=== PATIENT | male | born 1950 | race Hispanic/Latino ===

== ENCOUNTER 2020-08-15 06:33 | Inpatient (IN) | payer MEDICARE, OTHER ==
[~2020-08-15] VITALS: Ht 177.8 cm; Wt 88.5 kg
[~2020-08-15 06:33] MED LIST: FOLIC ACID PO; LISINOPRIL10 MG PO; METFORMIN HCL500 M2 PO; METOPROLOL SUCC25 MG PO; NITROGLYCERIN0.4 MG SL; PLAVIX75 MG PO; SIMVASTATIN40 MG PO; SYNTHROID100 MCG PO
[2020-08-15] MEDS ORDERED: MORPHINE SULFATE 2 MG/ML SYR 1ML IV STA (06:36)
[2020-08-15] MEDS ORDERED: ONDANSETRON HCL INJ 2MG/ML 2ML 2 MG/ML VIAL IV STA (06:36)
[2020-08-15] MEDS ORDERED: ASPIRIN 81 MG CHEW TAB PO ONE (06:45)
[2020-08-15] MEDS ORDERED: NITROGLYCERIN 2% OINT 1 GM PKT TOP ONE (06:45)
[2020-08-15 06:56] LABS: BASOPHILS % 0.1 % (0.0-1.0); EOSINOPHILS # (AUTO) 0.1 (0.0-0.4); EOSINOPHILS % 1.5 % (0.0-6.0); HEMATOCRIT 36.3 % (38.2-49.6); HEMOGLOBIN 12.6 g/dL (14.0-18.0); LYMPHOCYTES # (AUTO) 1.9 (1.0-3.2); LYMPHOCYTES % 25.3 % (18.0-39.1); MEAN CORPUSCULAR HEMOGLOBIN 28.3 pg (28-32); MEAN CORPUSCULAR HGB CONC 34.7 g/dL (31-35); MEAN CORPUSCULAR VOLUME 81.4 fL (81-99); MONOCYTES # (AUTO) 0.6 (0.2-0.8); MONOCYTES % 7.8 % (4.4-11.3); NEUTROPHILS # (AUTO) 4.9 (2.1-6.9); PLATELET COUNT 180 x10e3/uL (140-360); RED BLOOD COUNT 4.46 x10e6/uL (4.3-5.7); RED CELL DISTRIBUTION WIDTH 12.1 % (11.7-14.4)
[2020-08-15] MEDS ORDERED: SODIUM CHLORIDE 0.9% 500ML 500 ML IV ONE (07:00)
[2020-08-15 07:06] LABS: INR 0.87; PROTHROMBIN TIME 12.3 seconds (11.9-14.5)
[2020-08-15 07:14] LABS: ALBUMIN 3.7 g/dL (3.5-5.0); ALBUMIN/GLOBULIN RATIO 1.1 (0.8-2.0); ANION GAP 14.9 mmol/L (8-16); CALCIUM 10.3 mg/dL (8.4-10.2); CREATININE, SERUM 1.73 mg/dL (0.72-1.25); POTASSIUM 3.9 mmol/L (3.5-5.1)
[2020-08-15] MEDS ORDERED: SODIUM CHLORIDE 0.9% 1000ML 1,000 ML IV STA (07:17)
[2020-08-15 07:20] LABS: CREATINE KINASE MB 1.5 ng/mL (0-5.0)
[2020-08-15] MEDS ORDERED: INSULIN REGULAR, HUMAN 100 UNIT/1 ML 3ML VIAL ONE (07:28)
[2020-08-15] MEDS ORDERED: SODIUM CHLORIDE 0.9% 1000ML 1,000 ML ONE (07:28)
[2020-08-15] MEDS ORDERED: INSULIN REGULAR, HUMAN 100 UNIT/1 ML 3ML VIAL IV ONE (07:30)
[2020-08-15] MEDS ORDERED: NITROGLYCERIN 0.4 MG SUBL SL PRN (07:30)
[2020-08-15] MEDS: ASPIRIN 81 MG ENTERIC COATED PO SCH (07:38)
[2020-08-15] MEDS ORDERED: DEXTROSE 50% SYRINGE 50 ML IV PRN (07:45)
[2020-08-15] MEDS: FAMOTIDINE 20 MG/2 ML VIAL IV SCH ×2 (08:08→20:20)
[2020-08-15] MEDS: CLOPIDOGREL BISULFATE 75 MG TAB PO SCH (08:09)
[2020-08-15 08:55] VITALS: BP 131/80
[2020-08-15 09:35] VITALS: BP 140/81
[2020-08-15] MEDS ORDERED: ATORVASTATIN CA40 MG PO (09:51)
[2020-08-15 12:11] VITALS: BP 123/73
[2020-08-15] MEDS: INSULIN LISPRO 100 UNIT/1 ML 3ML VIAL SQ SCH ×3 (12:40→21:10)
[2020-08-15] MEDS: ENOXAPARIN SOD INJ 60 MG/0.6 ML SYR SC SCH ×2 (12:40→22:44)
[2020-08-15] MEDS: ONDANSETRON HCL INJ 2MG/ML 2ML 2 MG/ML VIAL IV PRN ×2 (14:06→23:22)
[2020-08-15] MEDS: MORPHINE SULFATE 2 MG/ML SYR 1ML IV PRN ×2 (14:06→23:22)
[2020-08-15 15:11] LABS: CREATINE KINASE MB 1.4 ng/mL (0-5.0)
[2020-08-15 16:28] VITALS: BP 121/80
[2020-08-15] MEDS ORDERED: ASPIRIN CHEW81 MG PO (18:22)
[2020-08-15] MEDS ORDERED: SIMVASTATIN40 MG PO (18:22)
[2020-08-15 20:00] VITALS: BP 127/83
[2020-08-15 20:28] LABS: CREATININE,URINE RANDOM 79.35 mg/dL (63-166); TOTAL PROTEIN, URINE 7.7 mg/dL (1-14)
[2020-08-15 21:00] VITALS: BP 127/83
[2020-08-15] MEDS: ATORVASTATIN 40 MG TAB PO SCH (21:48)
[2020-08-16] VITALS (8 sets, daily range): BP systolic 115–145; BP diastolic 67–88
[2020-08-16 04:07] LABS: CREATINE KINASE 39 IU/L (30-200)
[2020-08-16] MEDS: LEVOTHYROXINE SODIUM 100 MCG TAB PO SCH (06:07)
[2020-08-16 06:11] LABS: BASOPHILS % 0.3 % (0.0-1.0); EOSINOPHILS % 0.5 % (0.0-6.0); HEMATOCRIT 31.7 % (38.2-49.6); LYMPHOCYTES # (AUTO) 1.5 (1.0-3.2); LYMPHOCYTES % 19.6 % (18.0-39.1); MEAN CORPUSCULAR HEMOGLOBIN 29.2 pg (28-32); MEAN CORPUSCULAR HGB CONC 34.7 g/dL (31-35); MEAN CORPUSCULAR VOLUME 84.1 fL (81-99); MONOCYTES # (AUTO) 0.6 (0.2-0.8); MONOCYTES % 7.9 % (4.4-11.3); NEUTROPHILS # (AUTO) 5.4 (2.1-6.9); NEUTROPHILS % 71.2 % (38.7-80.0); PLATELET COUNT 162 x10e3/uL (140-360); RED BLOOD COUNT 3.77 x10e6/uL (4.3-5.7); RED CELL DISTRIBUTION WIDTH 12.3 % (11.7-14.4)
[2020-08-16 07:08] LABS: ANION GAP 13.2 mmol/L (8-16); CALCIUM 9.9 mg/dL (8.4-10.2); CHOL/HDL RATIO 3.8 (3.9-4.7); CREATININE, SERUM 1.44 mg/dL (0.72-1.25); POTASSIUM 4.2 mmol/L (3.5-5.1)
[2020-08-16] MEDS: INSULIN LISPRO 100 UNIT/1 ML 3ML VIAL SQ SCH ×5 (08:01→20:38)
[2020-08-16 08:44] LABS: CREATINE KINASE MB < 1.00 ng/mL (0-4.3)
[2020-08-16 08:57] LABS: CREATINE KINASE 28 IU/L (30-200)
[2020-08-16] MEDS: ASPIRIN 81 MG ENTERIC COATED PO SCH (09:34)
[2020-08-16] MEDS: CLOPIDOGREL BISULFATE 75 MG TAB PO SCH (09:34)
[2020-08-16] MEDS: METOPROLOL SUCCINATE 25 MG TAB XL PO SCH (09:34)
[2020-08-16] MEDS: ENOXAPARIN SOD INJ 60 MG/0.6 ML SYR SC SCH ×2 (09:37→22:11)
[2020-08-16] MEDS ORDERED: INSULIN LISPRO 100 UNIT/1 ML 3ML VIAL SQ SCH (11:30)
[2020-08-16] MEDS ORDERED: SODIUM CHLORIDE 0.9% 1000ML 1,000 ML IV PRN (12:45)
[2020-08-16 17:21] LABS: CREATINE KINASE MB < 1.00 ng/mL (0-4.3)
[2020-08-16] MEDS ORDERED: ACETAMINOPHEN 325 MG TAB PO PRN (20:15)
[2020-08-16] MEDS ORDERED: INSULIN GLARGINE 100 UNITS/ML VIAL SQ SCH ×2 (21:00)
[2020-08-16] MEDS: ATORVASTATIN 40 MG TAB PO SCH (21:02)
[2020-08-16 21:44] LABS: FREE T4 (FREE THYROXINE) 1.18 ng/dL (0.8-1.8); THYROID STIMULATING HORMONE 1.096 uIU/mL (0.350-4.940)
[2020-08-16] MEDS: ONDANSETRON HCL INJ 2MG/ML 2ML 2 MG/ML VIAL IV PRN (22:33)
[2020-08-16] MEDS: MORPHINE SULFATE 2 MG/ML SYR 1ML IV PRN (22:34)
[2020-08-17] VITALS (7 sets, daily range): BP systolic 121–132; BP diastolic 65–86
[2020-08-17 05:47] LABS: ANION GAP 14.8 mmol/L (8-16); CALCIUM 9.9 mg/dL (8.4-10.2); CREATININE, SERUM 1.28 mg/dL (0.72-1.25); POTASSIUM 3.8 mmol/L (3.5-5.1)
[2020-08-17] MEDS: LEVOTHYROXINE SODIUM 100 MCG TAB PO SCH (06:27)
[2020-08-17] MEDS: ASPIRIN 81 MG ENTERIC COATED PO SCH (09:14)
[2020-08-17] MEDS: CLOPIDOGREL BISULFATE 75 MG TAB PO SCH (09:14)
[2020-08-17] MEDS: METOPROLOL SUCCINATE 25 MG TAB XL PO SCH (09:15)
[2020-08-17] MEDS: INSULIN LISPRO 100 UNIT/1 ML 3ML VIAL SQ SCH ×7 (09:26→21:00)
[2020-08-17] MEDS: ENOXAPARIN SOD INJ 60 MG/0.6 ML SYR SC SCH ×2 (12:52→21:16)
[2020-08-17] MEDS: MORPHINE SULFATE 2 MG/ML SYR 1ML IV PRN (18:34)
[2020-08-17] MEDS: ONDANSETRON HCL INJ 2MG/ML 2ML 2 MG/ML VIAL IV PRN (18:34)
[2020-08-17] MEDS ORDERED: MAGNESIUM HYDROXIDE 30 ML UDC PO ONE (19:15)
[2020-08-17] MEDS ORDERED: INSULIN GLARGINE 100 UNITS/ML VIAL SQ SCH (21:00)
[2020-08-17] MEDS: ATORVASTATIN 40 MG TAB PO SCH (21:10)
[2020-08-18] VITALS: BP 115/69
[2020-08-18 04:00] VITALS: BP 119/83
[2020-08-18] MEDS: LEVOTHYROXINE SODIUM 100 MCG TAB PO SCH (05:31)
[2020-08-18 08:03] VITALS: BP 109/58
[2020-08-18] MEDS: INSULIN LISPRO 100 UNIT/1 ML 3ML VIAL SQ SCH ×4 (08:47→12:43)
[2020-08-18] MEDS: ENOXAPARIN SOD INJ 60 MG/0.6 ML SYR SC SCH (09:27)
[2020-08-18] MEDS: METOPROLOL SUCCINATE 25 MG TAB XL PO SCH (09:27)
[2020-08-18] MEDS: CLOPIDOGREL BISULFATE 75 MG TAB PO SCH (09:27)
[2020-08-18] MEDS: ASPIRIN 81 MG ENTERIC COATED PO SCH (09:27)
[2020-08-18] MEDS ORDERED: LEVEMIR FL100 UNIT/1 SC (09:57)
[2020-08-18] MEDS ORDERED: HUMALOG100 UNIT/1 SQ (09:58)
[2020-08-18 12:20] VITALS: BP 128/74
[2020-08-18] MEDS ORDERED: COLCRYS0.6 MG PO (13:43)
[2020-08-18] MEDS ORDERED: ONDANSETRON HCL 4 MG ORAL DISINTEGRATING TAB PO PRN (14:00)
[2020-08-18] MEDS ORDERED: INSULIN LISPRO 100 UNIT/1 ML 3ML VIAL SQ SCH (16:30)
[2020-08-18] MEDS ORDERED: INSULIN GLARGINE 100 UNITS/ML VIAL SQ SCH (21:00)
== END 2020-08-18 14:12 | disposition home or self-care (01) | DRG 638 ==
LOC: ER 07:00 → ERHOLD 07:25 → MED/SURG 09:11
PROVIDERS: ADMIT Internal Medicine; ATTEND Internal Medicine
DX: E11.65 Type 2 diabetes mellitus with hyperglycemia (principal); N17.9 Acute kidney failure, unspecified; R07.81 Pleurodynia; Z95.5 Presence of coronary angioplasty implant and graft; I25.10 Atherosclerotic heart disease of native coronary artery without angina pectoris; E78.5 Hyperlipidemia, unspecified; E03.9 Hypothyroidism, unspecified; E11.22 Type 2 diabetes mellitus with diabetic chronic kidney disease; I12.9 Hypertensive chronic kidney disease with stage 1 through stage 4 chronic kidney disease, or unspecified chronic kidney disease; I25.118 Atherosclerotic heart disease of native coronary artery with other forms of angina pectoris; M50.321 Other cervical disc degeneration at C4-C5 level; Z86.73 Personal history of transient ischemic attack (TIA), and cerebral infarction without residual deficits; N18.30 Chronic kidney disease, stage 3 unspecified; N40.0 Benign prostatic hyperplasia without lower urinary tract symptoms; Z11.59 Encounter for screening for other viral diseases
CPT/HCPCS: 36415; 71045; 72040; 76770; 80048; 80053; 80061; 82550; 82553; 82570; 82948; 83036; 83880; 84156; 84439; 84443; 84484; 85025; 85379; 85610; 85730; 86140; 93005; 99284; J1650; J1815; J1817; J2270; J2405; J7030; U0002

== ENCOUNTER 2020-08-23 09:04 | Observation (INO) | payer MEDICARE, OTHER ==
[~2020-08-23] VITALS: Ht 177.8 cm; Wt 88.5 kg
[~2020-08-23 09:04] MED LIST changes: +ASPIRIN CHEW81 MG PO; +ATORVASTATIN CA40 MG PO; +COLCRYS0.6 MG PO; +HUMALOG100 UNIT/1 SQ; +LEVEMIR FL100 UNIT/1 SC
[2020-08-23] MEDS ORDERED: PANTOPRAZOLE 40 MG 10ML VIAL IV ONE (09:14)
[2020-08-23 09:44] LABS: BASOPHILS % 0.5 % (0.0-1.0); EOSINOPHILS # (AUTO) 0.1 (0.0-0.4); EOSINOPHILS % 1.1 % (0.0-6.0); HEMATOCRIT 32.4 % (38.2-49.6); HEMOGLOBIN 10.5 g/dL (14.0-18.0); LYMPHOCYTES # (AUTO) 1.8 (1.0-3.2); LYMPHOCYTES % 21.5 % (18.0-39.1); MEAN CORPUSCULAR HEMOGLOBIN 27.8 pg (28-32); MEAN CORPUSCULAR HGB CONC 32.4 g/dL (31-35); MEAN CORPUSCULAR VOLUME 85.7 fL (81-99); MONOCYTES # (AUTO) 0.6 (0.2-0.8); MONOCYTES % 6.8 % (4.4-11.3); NEUTROPHILS # (AUTO) 5.7 (2.1-6.9); NEUTROPHILS % 69.7 % (38.7-80.0); PLATELET COUNT 353 x10e3/uL (140-360); RED BLOOD COUNT 3.78 x10e6/uL (4.3-5.7); RED CELL DISTRIBUTION WIDTH 12.8 % (11.7-14.4)
[2020-08-23] MEDS ORDERED: SODIUM CHLORIDE 0.9% 1000ML 1,000 ML IV STA (09:53)
[2020-08-23 09:54] LABS: INR 0.96; PROTHROMBIN TIME 13.3 seconds (11.9-14.5)
[2020-08-23 09:55] LABS: PARTIAL THROMBOPLASTIN TIME 39.7 seconds (23.8-35.5)
[2020-08-23] MEDS ORDERED: DEXTROSE 50% SYRINGE 50 ML IV ONE (10:00)
[2020-08-23 10:05] LABS: ALBUMIN 2.9 g/dL (3.5-5.0); ALBUMIN/GLOBULIN RATIO 0.7 (0.8-2.0); ANION GAP 16.6 mmol/L (8-16); CALCIUM 11.1 mg/dL (8.4-10.2); CREATININE, SERUM 1.57 mg/dL (0.72-1.25); MAGNESIUM 2.1 MG/DL (1.3-2.1); POTASSIUM 3.6 mmol/L (3.5-5.1)
[2020-08-23 10:14] LABS: CREATINE KINASE MB 1.4 ng/mL (0-5.0)
--- NOTE | 2020-08-23 10:59 | Diagnostic Imaging Report ---
EXAMINATION: CHEST SINGLE (PORTABLE) INDICATION: Chest pain. COMPARISON: Chest x-ray on 08/15/2020. FINDINGS: TUBES and LINES: None. LUNGS: Normal lung volumes. There is slight interval worsening of central pulmonary vascular congestion without franki pulmonary edema. Bibasilar atelectasis. No consolidations. PLEURA: No pleural effusion or pneumothorax. HEART AND MEDIASTINUM: The cardiomediastinal silhouette is mildly enlarged. BONES AND SOFT TISSUES: No acute osseous lesion. Soft tissues are unremarkable. UPPER ABDOMEN: No free air under the diaphragm. IMPRESSION: 1. Slight interval worsening of central pulmonary vascular congestion without franki pulmonary edema. 2. Bibasilar atelectasis. No focal consolidation, pleural effusion or pneumothorax. 3. Mild cardiomegaly, new since most recent prior examination. Signed by: Becca Nance MD on 08/23/2020 10:55 AM
[2020-08-23] MEDS ORDERED: ONDANSETRON HCL INJ 2MG/ML 2ML 2 MG/ML VIAL IV PRN (11:00)
[2020-08-23] MEDS ORDERED: DEXTROSE 50% SYRINGE 50 ML IV PRN (11:00)
[2020-08-23] MEDS ORDERED: MORPHINE SULFATE 2 MG/ML SYR 1ML IV PRN (11:00)
--- NOTE | 2020-08-23 11:17 | Emergency Department Note ---
History of Present Illnes History of Present Illness Chief Complaint: Chest Pain History of Present Illness This is a 70 year old male POV TO TRIAGE STATES "HE'S HAVING A HEART ATTACK." STATES, "HE HAS AN ELEPHANT SITTING ON HIS CHEST." PT AAOX4. PT REFUSING TO REMOVE OR EVEN LIFT SHIRT STATING HE IS "TOO COLD." EXPLAINED URGENCY OF SITUATION AND PT AGREED TO ALLOW EKG. MD IN TRIAGE SEEING PT. PT STATES RECENT HOSPITALIZATION. PT GIVEN HUMALOG 18 UNITS INSULIN BATCH AND FURNACE OPERATOR WITHOUT CHECKING BLOOD SUGAR AND TOOK ONE NTG BATCH AND FURNACE OPERATOR WITHOUT CHANGE. Historian: Patient Arrival Mode: Car Crossbar Switch Adjuster Required: No Onset (how long ago): minute(s) Location: SS CHEST Quality: PRESSURE Radiation: Reports non-radiation Severity: severe Onset quality: sudden Timing of current episode: intermittent Chronicity: recurrent Context: Denies recent illness Relieving factors: none Exacerbating factors: none Associated symptoms: Reports denies other symptoms, Reports shortness of breath Past Medical/Family History Physician Review I have reviewed the patient's past medical and family history. Any updates have been documented here. Past Medical History Recent Fever: No Clinical Suspicion of Infectio: No New/Unexplained Change in Ment: No Past Medical History: Hypertension, Diabetes, Hypothyroidism, CAD Past Surgical History: Cholecysctectomy, Hernia Repair Other Surgery: two cardiac stents Social History Smoking Cessation: Former smoker Counseling Performed: No Alcohol Use: None Any Illegal Drug Use: No TB Exposure/Symptoms: No Physically hurt or threatened: No Family History Family history of heart diseas: Yes Other Any Pre-Existing Lines (PICC,: No Review of Systems Review of Systems Constitutional: Reports no symptoms EENTM: Reports no symptoms Cardiovascular: Reports as per HPI, Reports chest pain Respiratory: Reports as per HPI Gastrointestinal: Reports no symptoms Genitourinary: Reports no symptoms Musculoskeletal: Reports no symptoms Integumentary: Reports no symptoms Neurological: Reports no symptoms Psychological: Reports no symptoms Endocrine: Reports no symptoms Hematological/Lymphatic: Reports no symptoms Physical Exam Related Data Allergies: Coded Allergies: No Known Allergies (Unverified , 08/15/20) Triage Vital Signs Vital Signs Date Time Temp Pulse Resp B/P (MAP) Pulse Ox O2 Delivery O2 Flow Rate FiO2 08/23/20 09:04 96.5 64 18 125/67 100 Room Air Vital signs reviewed: Yes Physical Exam CONSTITUTIONAL Constitutional: Present well-developed, Present well-nourished HENT HENT: Present normocephalic, Present atraumatic, Present oropharynx clear/moist, Present nose normal HENT L/R: Present left ext ear normal, Present right ext ear normal EYES Eyes: Reports PERRL, Reports conjunctivae normal NECK Neck: Present ROM normal PULMONARY Pulmonary: Present effort normal, Present breath sounds normal CARDIOVASCULAR Cardiovascular: Present regular rhythm, Present heart sounds normal, Present capillary refill normal, Present normal rate GASTROINTESTINAL Abdominal: Present soft, Present nontender, Present bowel sounds normal GENITOURINARY Genitourinary: Present exam deferred SKIN Skin: Present warm, Present dry MUSCULOSKELETAL Musculoskeletal: Present ROM normal NEUROLOGICAL Neurological: Present alert, Present oriented x 3, Present no gross motor or sensory deficits PSYCHOLOGICAL Psychological: Present mood/affect normal, Present judgement normal Results Laboratory Result Diagram: 08/23/20 0911 08/23/20 0911 Laboratory Laboratory Tests Test 08/23/20 09:11 White Blood Count 8.22 x10e3/uL (4.8-10.8) Red Blood Count 3.78 x10e6/uL (4.3-5.7) Hemoglobin 10.5 g/dL (14.0-18.0) Hematocrit 32.4 % (38.2-49.6) Mean Corpuscular Volume 85.7 fL (81-99) Mean Corpuscular Hemoglobin 27.8 pg (28-32) Mean Corpuscular Hemoglobin Concent 32.4 g/dL (31-35) Red Cell Distribution Width 12.8 % (11.7-14.4) Platelet Count 353 x10e3/uL (140-360) Neutrophils (%) (Auto) 69.7 % (38.7-80.0) Lymphocytes (%) (Auto) 21.5 % (18.0-39.1) Monocytes (%) (Auto) 6.8 % (4.4-11.3) Eosinophils (%) (Auto) 1.1 % (0.0-6.0) Basophils (%) (Auto) 0.5 % (0.0-1.0) Neutrophils # (Auto) 5.7 (2.1-6.9) Lymphocytes # (Auto) 1.8 (1.0-3.2) Monocytes # (Auto) 0.6 (0.2-0.8) Eosinophils # (Auto) 0.1 (0.0-0.4) Basophils # (Auto) 0.0 (0.0-0.1) Absolute Immature Granulocyte (auto 0.03 x10e3/uL (0-0.1) Prothrombin Time 13.3 seconds (11.9-14.5) Prothromb Time International Ratio 0.96 Activated Partial Thromboplast Time 39.7 seconds (23.8-35.5) Sodium Level 140 mmol/L (136-145) Potassium Level 3.6 mmol/L (3.5-5.1) Chloride Level 106 mmol/L (98-107) Carbon Dioxide Level 21 mmol/L (22-29) Anion Gap 16.6 mmol/L (8-16) Blood Urea Nitrogen 30 mg/dL (7-26) Creatinine 1.57 mg/dL (0.72-1.25) Estimat Glomerular Filtration Rate 44 ML/MIN (60-) BUN/Creatinine Ratio 19 (6-25) Glucose Level 82 mg/dL (74-118) Calcium Level 11.1 mg/dL (8.4-10.2) Magnesium Level 2.1 MG/DL (1.3-2.1) Total Bilirubin 0.4 mg/dL (0.2-1.2) Aspartate Amino Transf (AST/SGOT) 16 IU/L (5-34) Alanine Aminotransferase (ALT/SGPT) 19 IU/L (0-55) Alkaline Phosphatase 93 IU/L (40-150) Creatine Kinase 48 IU/L (30-200) Creatine Kinase MB 1.40 ng/mL (0-5.0) Troponin I 0.009 ng/mL (0-0.300) B-Type Natriuretic Peptide 30.9 pg/mL (0-100) Total Protein 7.3 g/dL (6.5-8.1) Albumin 2.9 g/dL (3.5-5.0) Globulin 4.4 g/dL (2.3-3.5) Albumin/Globulin Ratio 0.7 (0.8-2.0) Lab results reviewed: Yes Imaging Imaging results reviewed: Yes Impressions EXAMINATION: CHEST SINGLE (PORTABLE) INDICATION: Chest pain. COMPARISON: Chest x-ray on 08/15/2020. FINDINGS: TUBES and LINES: None. LUNGS: Normal lung volumes. There is slight interval worsening of central pulmonary vascular congestion without franki pulmonary edema. Bibasilar atelectasis. No consolidations. PLEURA: No pleural effusion or pneumothorax. HEART AND MEDIASTINUM: The cardiomediastinal silhouette is mildly enlarged. BONES AND SOFT TISSUES: No acute osseous lesion. Soft tissues are unremarkable. UPPER ABDOMEN: No free air under the diaphragm. IMPRESSION: 1. Slight interval worsening of central pulmonary vascular congestion without franki pulmonary edema. 2. Bibasilar atelectasis. No focal consolidation, pleural effusion or pneumothorax. 3. Mild cardiomegaly, new since most recent prior examination. Signed by: Becca Nance MD on 08/23/2020 10:55 AM Procedures 12 Lead ECG Interpretation ECG Interpretation : ECG: ECG 1 Crossbar Switch Adjuster: Interpreted by ED physician Date: Aug 23, 2020 Time: 10:04 Rhythm: SVT (? JUNCTIONAL) Rate: normal BPM: 64 QRS axis: normal ST segments normal: Yes T wave inversion: aVR Q waves: V3 Clinical Impression: abnormal ECG Assessment & Plan Medical Decision Making MDM PT W/ MULTIPLE CARDIAC RF'S - CBC, CHEM, ECG, CARDIACS, CXR - R/O STEMI/NSTEMI, CHF, RENAL INSUFF, ELECTROLYTE ABNL Reassessment Reassessment ADMIT TO DR COLE Assessment & Plan Final Impression: (1) Chest pain Depart Disposition: ADMITTED Last Vital Signs Date Time Temp Pulse Resp B/P (MAP) Pulse Ox O2 Delivery O2 Flow Rate FiO2 08/23/20 10:06 63 16 122/81 100 Room Air 08/23/20 09:04 96.5 Home Meds Reported Medications Colchicine (COLCRYS) 0.6 Mg Tablet, 0.6 MG PO BID, #30 TAB 08/18/20 Insulin Lispro (HUMALOG) 100 Unit/1 Ml Cartridge, 15 UNITS SQ AC 08/18/20 Insulin Detemir (Levemir Flextouch) 100 Unit/1 Ml Insuln.pen, 30 UNITS SC HS, UNIT 08/18/20 Aspirin (ASPIRIN CHEW) 81 Mg Chew, 81 MG PO DAILY, #30 TAB 08/15/20 Simvastatin (SIMVASTATIN) 40 Mg Tablet, 40 MG PO 2100, #30 TAB 08/15/20 Atorvastatin Calcium (ATORVASTATIN CALCIUM) 40 Mg Tablet, 40 MG PO QAM, #30 TAB 08/15/20 Levothyroxine Sodium (SYNTHROID) 100 Mcg Tab, 100 MCG PO 0600, #30 TAB 04/02/20 [Folic Acid ] No Conflict Check, 1 MG PO DAILY 04/02/20 Metoprolol Succinate (METOPROLOL SUCCINATE) 25 Mg Tab.er.24h, 25 MG PO DAILY 04/02/20 Metformin Hcl (METFORMIN HCL ER) 500 Mg Tab.er.24, 500 MG PO BID, #60 TAB 04/02/20 Nitroglycerin (NITROGLYCERIN) 0.4 Mg Tab.subl, 0.4 MG SL Q5MIN, TAB 04/02/20 Clopidogrel Bisulfate* (PLAVIX) 75 Mg Tablet, 75 MG PO DAILY, #30 TAB 04/02/20 Medications in the ED Pantoprazole Sodium 40 mg ONCE ONCE IV Last administered on 08/23/20at 10:15; Admin Dose 40 MG; Start 08/23/20 at 09:14; Stop 08/23/20 at 09:39; Status DC Sodium Chloride 1,000 ml @ 0 mls/hr Q0M STAT IV Last administered on 08/23/20at 10:15; Admin Dose 999 MLS/HR; Start 08/23/20 at 09:53; Stop 08/23/20 at 09:56; Status DC Dextrose 25 ml NOW ONCE IV Last administered on 08/23/20at 10:14; Admin Dose 25 ML; Start 08/23/20 at 10:00; Stop 08/23/20 at 10:09; Status DC Morphine Sulfate 2 mg Q3H PRN IV MODERATE PAIN (4-6); Start 08/23/20 at 11:00; Stop 08/30/20 at 10:59 Ondansetron HCl 4 mg Q4H PRN IV NAUSEA AND VOMITING; Start 08/23/20 at 11:00; Stop 09/22/20 at 10:59 Dextrose 50 ml PRN PRN IV BLOOD SUGAR; Start 08/23/20 at 11:00; Stop 09/22/20 at 10:59 KARELY TAYLOR MD Aug 23, 2020 11:17
--- NOTE | 2020-08-23 11:20 | NUR ---
PT REPORTS DIZZINESS, PRESSURE BEHIND EYES AND SOB. PT'S PALE AND COOL TO TOUCH. BS GLUCOSE 56. ER MD NOTIFIED AND AWARE. X1 AMP 50% DEXTROSE GIVEN. V/S/S. WILL CONTINUE TO MONITOR.
[2020-08-23] MEDS: INSULIN LISPRO 100 UNIT/1 ML 3ML VIAL SQ SCH ×3 (11:35→20:00)
--- NOTE | 2020-08-23 12:04 | Diagnostic Imaging Report ---
Exam: Head CT without contrast History: Blurred vision, headache Comparison studies: None Technique: Axial images were obtained from the skull base to the vertex. Coronal and sagittal images reconstructed from the axial data. Dose modulation, iterative reconstruction, and/or weight based adjustment of the mA/kV was utilized to reduce the radiation dose to as low as reasonably achievable. Radiation dose: Total DLP: 1152 mGy*cm. Estimated effective dose: DLP x 0.015 Intravenous contrast: None Findings: Scalp: No abnormalities. Bones: No fractures, blastic or lytic lesions. Brain sulci: Mildly prominent Ventricles: Mild compensatory dilatation. No hydrocephalus. Extra-axial spaces: No masses, no fluid collection. Parenchyma: No abnormal densities. No masses, hemorrhage, acute or chronic vascular insults. Sellar/suprasellar region: No abnormalities. Craniocervical junction: Patent foramen magnum. No Chiari one malformation. Included paranasal sinuses: Left maxillary sinus partially opacified by mucosal thickening predominantly along the alveolar recess. Remaining sinuses are clear. Incidental findings: Atherosclerotic calcifications in the carotid siphons. IMPRESSION: 1. No acute intracranial abnormalities. 2. Mild age-related generalized parenchymal volume loss. Signed by: Dr. Magno Falcon M.D. on 08/23/2020 12:01 PM
[2020-08-23 13:05] VITALS: BP 118/68
--- NOTE | 2020-08-23 13:05 | NUR ---
Received patient from ER. Patient is alert and oriented x4. Denies chest pain. Patient ambulates with nonskid socks. Gait steady. Orientated to room and how to use the call button. Encourage to use call light if needed assistance.
[2020-08-23 13:14] VITALS: BP 118/68
--- NOTE | 2020-08-23 15:56 | Consultation ---
DATE OF CONSULTATION: 08/23/2020 Cardiology Consultation REASON FOR CONSULTATION: Chest pain. HISTORY OF PRESENT ILLNESS: This is a 70-year-old man with a history of hypertension, hyperlipidemia, diabetes mellitus, coronary artery disease, who presented with chest pain. The patient reports centralized chest discomfort described as a burning and pressure-like radiation into the neck with shortness of breath and blurry vision. The symptoms occurred at rest, progressively worsened, not mildly improved with nitroglycerin. No other exacerbating or relieving factors. REVIEW OF SYSTEMS: A 12-point review of system was conducted, is negative except as stated above in the HPI. PAST MEDICAL HISTORY: As stated above in the HPI. PAST SURGICAL HISTORY: As stated above in the HPI. PAST FAMILY HISTORY: No premature coronary artery disease and cardiac . SOCIAL HISTORY: No illicit drug, alcohol, or tobacco use. ALLERGIES: NO KNOWN DRUG ALLERGIES. MEDICATIONS: See medications reconciliation form. PHYSICAL EXAMINATION: VITAL SIGNS: Temperature is 97.9, heart rate is 63, respirations are 18, oxygen saturation 100% on room air, blood pressure is 118/68. GENERAL: Well appearing, no apparent distress. Alert and oriented x3. HEAD: Normocephalic and atraumatic. Eyes, the extraocular muscles are intact. Conjunctivae are clear. NECK: No JVD. No bruits. CARDIOVASCULAR: Regular rate and rhythm. LUNGS: Clear to auscultation. ABDOMEN: Soft, nontender, nondistended. EXTREMITIES: No clubbing, cyanosis, or edema. VASCULAR: 2+ pulses. SKIN: Warm, dry, and intact. NEUROLOGIC: No focal deficits noted. Cranial nerves grossly intact. PSYCHIATRIC: Normal mood and affect. LABORATORY DATA: Reviewed. Troponin negative. A 12-lead electrocardiogram shows no active ischemia or infarct. IMPRESSION: 1. Chest pain. 2. Coronary artery disease. 3. Hypertension. 4. Hyperlipidemia. 5. Diabetes mellitus. 6. Anemia. 7. Chronic kidney disease. RECOMMENDATIONS: We will check a 2D echocardiogram and a nuclear stress test. Continue all current cardiovascular medications. Consider brain MRI. Further recommendations to follow up. DO HARRISON Mora/DENEENL /[id number]
[2020-08-23 16:11] VITALS: BP 133/72
--- NOTE | 2020-08-23 16:34 | NUR ---
Patient c/o blurry vision, appears slightly agitated and states " I can't even see with this new glasses anymore" bedside blood glucose check is 126. Denies chest pain. Denies SOB. Call light in reach.
[2020-08-23 17:21] LABS: CREATINE KINASE MB 1.6 ng/mL (0-5.0)
--- NOTE | 2020-08-23 18:55 | NUR ---
Report given to night nurse. Respiration even and unlabored without SOB. Call light in reach. Denies pain at this time.
--- NOTE | 2020-08-23 19:10 | NUR ---
Patient visited in room during nursing rounds. Patient's at bedside. Pt alert and oriented x4. Pt ambulatory in room with standby assist prn. Currently pt sitting on recliner chair at bedside. Pt denies any pain or discomfort at this time. Pt aware he is scheduled for Lexiscan stress test tomorrow (08/24/20) by Dr. King (Cardiology). Call espinoza within reach.
[2020-08-23] MEDS ORDERED: ACETAMINOPHEN 325 MG TAB PO PRN (19:30)
[2020-08-23 20:00] VITALS: BP 136/65
[2020-08-23 21:00] VITALS: BP 136/65
--- NOTE | 2020-08-23 22:00 | NUR ---
Received phone call from factory maintenance technician and she is aware of patient scheduled for Lexiscan stress test tomorrow (08/24/20). Pt to be kept NPO at midnight tonight.
--- NOTE | 2020-08-23 23:20 | NUR ---
Pt c/o shortness of breath and sitting up in bed. O2 checked and it was 100%. Pt still placed on 2L NC for comfort and pt stated he felt some relief immediately. Will monitor pt.
[2020-08-24] VITALS (7 sets, daily range): BP systolic 123–135; BP diastolic 75–80
[2020-08-24 00:29] LABS: CREATINE KINASE MB 1.4 ng/mL (0-5.0)
[2020-08-24 05:51] LABS: BASOPHILS % 0.3 % (0.0-1.0); EOSINOPHILS # (AUTO) 0.1 (0.0-0.4); EOSINOPHILS % 1.9 % (0.0-6.0); HEMATOCRIT 30.8 % (38.2-49.6); LYMPHOCYTES # (AUTO) 1.5 (1.0-3.2); LYMPHOCYTES % 21.5 % (18.0-39.1); MEAN CORPUSCULAR HEMOGLOBIN 28.2 pg (28-32); MEAN CORPUSCULAR HGB CONC 32.5 g/dL (31-35); MEAN CORPUSCULAR VOLUME 86.8 fL (81-99); MONOCYTES # (AUTO) 0.5 (0.2-0.8); MONOCYTES % 7.1 % (4.4-11.3); NEUTROPHILS # (AUTO) 4.7 (2.1-6.9); NEUTROPHILS % 68.9 % (38.7-80.0); PLATELET COUNT 292 x10e3/uL (140-360); RED BLOOD COUNT 3.55 x10e6/uL (4.3-5.7); RED CELL DISTRIBUTION WIDTH 12.7 % (11.7-14.4)
[2020-08-24 06:30] LABS: ALBUMIN 2.5 g/dL (3.5-5.0); ALBUMIN/GLOBULIN RATIO 0.7 (0.8-2.0); ANION GAP 10.3 mmol/L (8-16); CALCIUM 10.3 mg/dL (8.4-10.2); CHOL/HDL RATIO 4.7 (3.9-4.7); CREATININE, SERUM 1.32 mg/dL (0.72-1.25); POTASSIUM 4.3 mmol/L (3.5-5.1)
[2020-08-24] MEDS: INSULIN LISPRO 100 UNIT/1 ML 3ML VIAL SQ SCH ×6 (07:30→20:56)
[2020-08-24] MEDS ORDERED: FOLIC ACID 1 MG PO SCH (09:30)
[2020-08-24] MEDS ORDERED: NITROGLYCERIN 0.4 MG SUBL SL SCH (09:30)
--- NOTE | 2020-08-24 09:47 | NUR ---
ASSESSMENT: Spiritual concern Pt worried. Pt's at bedside. Pt states he is concerned about source of his illness. Also pt states his 41 y/o son is recovering form double bypass surgery. Intervention: Provided hospitality and empathic listening. Facilitated illness review and storytelling. Provided prayer and information on how to reach practice nurse, if needed. Outcome: Pt & expressed appreciation for visit. No need to follow at this time. JONI LANCE Facility Practice Specialist Spiritual Care Department O: [phone]
[2020-08-24] MEDS ORDERED: NITROGLYCERIN 0.4 MG SUBL SL PRN (10:00)
[2020-08-24] MEDS ORDERED: FUROSEMIDE INJ 10 MG/ML 2 ML VIAL IV ONE (10:00)
--- NOTE | 2020-08-24 10:03 | History and Physical ---
PRIMARY CARE PHYSICIAN: Dr. Zev Ybarra CONSULTING PHYSICIAN: Dr. Jorge Vincent CHIEF COMPLAINT: Chest pain associated with history of coronary artery disease with previous coronary stent. HISTORY OF PRESENT ILLNESS: The patient is a 70-year-old male with uncontrolled diabetes, recently initiated on insulin treatment and also with coronary artery disease with previous coronary stent. The patient came in with chest pain, radiating to the neck area. The patient also has increasing shortness of breath and some blurred vision with headaches. CT scan of the brain otherwise unremarkable. The patient is stable. He underwent a stress test. The patient will be followed by his assistant to the ceo, Dr. Jorge Vincent. PAST MEDICAL HISTORY: Coronary artery disease with previous stent. Diabetes type 2, recently initiated on insulin due to uncontrolled diabetes. Please see the previous discharge summary. Hypertension, dyslipidemia, hypothyroidism, right coronary stents. Atherosclerotic heart disease. PAST SURGICAL HISTORY: Right coronary stent. SOCIAL HISTORY: The patient does not smoke or use alcohol. No regular drugs. ALLERGIES: NO KNOWN ALLERGIES. HOME MEDICATIONS: The patient is on aspirin, Lipitor, Plavix, colchicine, Levemir insulin, lispro insulin, levothyroxine, metformin, metoprolol succinate, nitroglycerin, and simvastatin. REVIEW OF SYSTEMS: Chest pain with radiation to the left thigh and neck area. No abdominal pain. No diarrhea or constipation. No neurological focal deficit. No numbness of the arm. No diaphoresis. PHYSICAL EXAMINATION: VITAL SIGNS: Temperature is 98, blood pressure 135/75, pulse rate 68, respirations 18. GENERAL: The patient is not in acute distress, he is awake. HEENT: Normocephalic and atraumatic. Anicteric. NECK: Supple grossly. PULMONARY: Diminished breath sounds without any wheezing, rales. CARDIOVASCULAR: S1, S2. Regular rate and rhythm. ABDOMEN: Soft. Positive bowel sounds. Grossly nontender and nondistended. EXTREMITIES: No gross cyanosis or edema. NEUROLOGIC: No gross focal deficit. LABORATORY: Chemistry, sodium is 140, potassium is 4.3, chloride 112, bicarb 22, BUN 19, creatinine 1.3, glucose 150. Cardiac enzyme been negative. AST 14, ALT is 15. LDL is 50, HDL 20, triglyceride 122. WBC is 8.2, hemoglobin 10.5, hematocrit 32.4, and platelets 353. IMAGING TESTS: Brain CT, there was no acute finding. Chest x-ray, slight interval worsening of central pulmonary vascular congestion without franki pulmonary edema. Bilateral atelectasis. No focal consolidation. IMPRESSION: 1. Pulmonary vascular congestion. 2. Atypical chest pain with history of right coronary stent and coronary artery disease. 3. Baseline recent diabetes type 2 on insulin treatment. 4. Hypertension and dyslipidemia, good control. PLAN: Nuclear stress test. Continue with home medication. IV furosemide gently. Continue with home medication. Insulin sliding scale coverage. Hold metformin. We will continue to monitor this patient closely and adjust his medication. Julito Garcia MD JT/MODL /[id number] cc: Zev Ybarra MD
[2020-08-24] MEDS: ASPIRIN 81 MG CHEW TAB PO SCH (10:58)
[2020-08-24] MEDS: CLOPIDOGREL BISULFATE 75 MG TAB PO SCH (10:58)
[2020-08-24] MEDS ORDERED: NON-FORMULARY MEDICATION (Insulin Lispro (Humalog) 10 UNITS) SQ SCH (11:30)
[2020-08-24] MEDS: COLCHICINE 0.6 MG TAB PO SCH (17:28)
[2020-08-24] MEDS ORDERED: ATORVASTATIN 40 MG TAB PO SCH (21:00)
[2020-08-24] MEDS ORDERED: NON-FORMULARY MEDICATION (Atorvastatin Calcium 40 MG) PO SCH (21:00)
[2020-08-24] MEDS ORDERED: INSULIN GLARGINE 100 UNITS/ML VIAL SQ SCH (21:00)
--- NOTE | 2020-08-24 21:42 | Progress Note ---
DATE: 08/24/2020 Cardiology Progress Note SUBJECTIVE: The patient went to get a nuclear stress test today, however, had severe pain in his neck and his arms due to chronic musculoskeletal neck pain issues. Also became claustrophobic and test had to be canceled. Says he cannot undergo that test at this time. His chest pain has been getting better since admission. OBJECTIVE: VITAL SIGNS: Temperature afebrile, pulse 67, respiratory rate 18, blood pressure 125/76, and saturating 100% on 2 L nasal cannula. GENERAL: A 70-year-old man, no acute distress. CARDIOVASCULAR: Regular rate and rhythm. No murmurs, rubs, or gallops. LUNGS: Clear to auscultation anteriorly. ABDOMEN: Soft, nontender, and nondistended. NEURO AND PSYCH: Alert and oriented to person, place, and time. Normal affect. INPATIENT MEDICATIONS: Reviewed. LABORATORY DATA: Reviewed. Troponins are negative. GFR 64. IMAGING DATA: Reviewed. Telemetry data reviewed, shows normal sinus rhythm. Echocardiogram reviewed, shows normal LV ejection fraction. Prior coronary angiogram was reviewed when he had stents placed in his RCA. There was [id number] plaquing in his other coronaries, but no severe disease. ASSESSMENT AND PLAN: 1. Chest pain, atypical. 2. History of coronary artery disease, status post PCI recently. 3. Hypertension. 4. Hyperlipidemia. 5. Chronic kidney disease. PLAN: The patient can undergo stress testing for risk stratification at this time. He had a recent angiogram that did not show any residual severe disease. Continue dual antiplatelets for now, has been ruled out for acute IN. From cardiovascular standpoint, he can be discharged and follow up with Dr. Vincent as an outpatient. Once his musculoskeletal pain is better controlled, can get outpatient stress test to further risk stratify as needed. Thank you for this consult. We will continue to follow. MD PHUONG Schofield/EDEN /[id number]
[2020-08-25] VITALS: BP 141/78
[2020-08-25 04:00] VITALS: BP 142/75
[2020-08-25] MEDS ORDERED: LEVOTHYROXINE SODIUM 100 MCG TAB PO SCH (06:00)
[2020-08-25 06:51] LABS: ANION GAP 12.6 mmol/L (8-16); CALCIUM 10.1 mg/dL (8.4-10.2); CREATININE, SERUM 1.41 mg/dL (0.72-1.25); POTASSIUM 4.6 mmol/L (3.5-5.1)
[2020-08-25] MEDS: INSULIN LISPRO 100 UNIT/1 ML 3ML VIAL SQ SCH ×2 (07:30)
[2020-08-25 08:08] VITALS: BP 121/83
[2020-08-25] MEDS ORDERED: METOPROLOL SUCCINATE 25 MG TAB XL PO SCH (09:00)
[2020-08-25] MEDS ORDERED: FOLIC ACID 1 MG TAB PO SCH (09:00)
[2020-08-25] MEDS ORDERED: FUROSEMIDE INJ 10 MG/ML 2 ML VIAL IV SCH (09:00)
[2020-08-25] MEDS: ASPIRIN 81 MG CHEW TAB PO SCH (09:14)
[2020-08-25] MEDS: CLOPIDOGREL BISULFATE 75 MG TAB PO SCH (09:14)
[2020-08-25] MEDS: COLCHICINE 0.6 MG TAB PO SCH (09:14)
[2020-08-25 09:48] VITALS: BP 121/83
--- NOTE | 2020-08-25 12:15 | Discharge Summary ---
PRIMARY CARE PHYSICIAN: Dr. Zev Ybarra. SR RISK MANAGEMENT CONSULTANT: Dr. Jorge Vincent. FINAL DIAGNOSES: 1. Atypical chest pain. The patient is unable to do a stress test due to musculoskeletal pain. Nuclear stress test is scheduled for later date. 2. Cough and congestion with some vascular congestion, fluid overload, ejection fraction approximately 55%. The patient much improved with furosemide. Possible early bronchitis. Chest x-ray showing vascular congestion. HISTORY OF PRESENT ILLNESS: This is a 70-year-old male with history of coronary disease, came in with some discomfort, chest pain with cough. The patient's chest x-ray showed vascular congestion. He did receive some IV furosemide and he is feeling much better. Shortness of breath improved. Echocardiogram showed ejection fraction of 55% to 60%. EKG, junctional rhythm with regular rate and rhythm. The patient was going for a nuclear stress test where he was unable to do because of his shoulder and neck pain. The patient was taking pain medication over the counter. He will continue with Tylenol and we will get a stress test as an outpatient. With respect to his nonproductive cough, the patient has some vascular congestion, but also could be early bronchitis. He will be given a Z-Oscar, Proventil, Tessalon Perles, furosemide and potassium and the patient will go home today. He will resume his home medication except for metformin since his creatinine slightly elevated at 1.4. The patient is otherwise stable. He is already on aspirin, Lipitor, Plavix and other medications including Levemir and Humalog. He is on metoprolol succinate as well. The patient to follow up with Dr. Jorge Vincent as an outpatient for stress test. He will follow up with his family physician, Dr. eZv Ybarra for adjustment of his other medication. He will follow up with Dr. Son, his belt repairer for diabetes management. The patient will resume his home medication except for the metformin. The patient is otherwise stable. Note will be sent to Dr. Zev Ybarra. MD TINY Mason/EDEN /[id number]
--- OUTSIDE RECORDS SUMMARY | 2020-08-27 18:25 | XMS REPORT | Continuity of Care Document ---
Author Author [facility] Organization [facility] Address [address] [place] [address] Phone Unavailable Care Team Providers Care Program Review Director Name Role Phone REEMA COLE Attnathaly Unavailable REEMA COLE Unavailable Problems This patient has no known problems. Allergies, Adverse Reactions, Alerts This patient has no known allergies or adverse reactions. Medications This patient has no known medications. Procedures This patient has no known procedures. Results Test Description Test Time Test Comments Results Result Comments Source CT BRAIN WO 2020-08-23 11:56:00 [facility] : 1950 Sex: M [facility] [address] [address] Patient Name: JONATHAN COTTRELL MR #: [id number] : 1950 Age/Sex: 70/M Req #: [id number] [facility] Physician: REEMA COLE MD Ordered by: KARELY TAYOLR MD Report #: [id number] Location: MED/SURG3 Room/Bed: [facility] Procedure: [id number] CT/CT BRAIN WO Exam Date: 08/23/20 Exam Time: 1128 REPORT STATUS: Signed Exam: Head CT without contrast History: Blurred vision, headache Comparison studies: None Technique: Axial images were obtained from the skull base to the vertex. Coronal and sagittal images reconstructed from the axial data. Dose modulation, iterative reconstruction, and/or weight based adjustment of the mA/kV was utilized to reduce the radiation dose to as low as reasonably achievable. Radiation dose: Total DLP: 1152 mGy*cm. Estimated effective dose: DLP x 0.015 Intravenous contrast: None Findings: Scalp: No abnormalities. Bones: No fractures, blastic or lytic lesions. Brain sulci: Mildly prominent Ventricles: Mild compensatory dilatation. No hydrocephalus. Extra-axial spaces: No masses, no fluid collection. Parenchyma: No abnormal densities. No masses, hemorrhage, acute or chronic vascular insults. Sellar/suprasellar region: No abnormalities. Craniocervical junction: Patent foramen magnum. No Chiari one malformation. Included paranasal sinuses: Left maxillary sinus partially opacified by mucosal thickening predominantly along the alveolar recess. Remaining sinuses are clear. Incidental findings: Atherosclerotic calcifications in the carotid siphons. IMPRE SSION: 1. No acute intracranial abnormalities. 2. Mild age-related generalized parenchymal volume loss. Signed by: Dr. Cornelius Falcon M.D. on 08/23/2020 12:01 PM Dictated By: CORNELIUS FALCON MD 120 Transcribed By: JOSE LUIS on 08/23/20 120 COPY TO: KARELY TAYLOR MD CHEST SINGLE (PORTABLE) 2020-08-23 10:53:00 [facility] : 1950 Sex: M [place] [address] Patient Name: JONATHAN COTTRELL MR #: [id number] : 1950 Age/Sex: 70/M Req #: [id number] Adm Physician: Ordered by: KARELY TAYLOR MD Report #: [id number] Location: ER Room/Bed: Procedure: [id number] DX/CHEST SINGLE (PORTABLE) Exam Date: 08/23/20 Exam Time: 20 REPORT STATUS: Signed EXAMINATION: CHEST SINGLE (PORTABLE) INDICATION: Chest pain. COMPARISON: Chest x-ray on 08/15/2020. FINDINGS: TUBES and LINES: None. LUNGS: Normal lung volumes. There is slight interval worsening of central pulmonary vascular congestion without franki pulmonary edema. Bibasilar atelectasis. No consolidations. PLEURA: No pleural effusion or pneumothorax. HEART AND MEDIASTINUM: The cardiomediastinal silhouette is mildly enlarged. BONES AND SOFT TISSUES: No acute osseous lesion. Soft tissues are unremarkable. UPPER ABDOMEN: No free air under the diaphragm. IMPRESSION: 1. Slight interval worsening of central pulmonary vascular congestion without franki pulmonary edema. 2. Bibasilar atelectasis. No focal consolidation, pleural effusion or pneumothorax. 3. Mild cardiomegaly, new since most recent prior examination. Signed by: Jreemi Louise MD on 08/23/2020 10:55 AM Dictated By: JEREMI LOUISE MD 54 Transcribed By: JOSE LUIS on 08/23/201054 COPY TO: KARELY TAYLOR MD C-SPINE 2 VIEWS AP LATERAL 2020-08-17 11:44:00 [facility] : 1950 Sex: M [place] [address] Patient Name: JONATHAN COTTRELL MR #: [id number] : 1950 Age/Sex: 70/M Req #: [id number] [facility] Physician: REEMA COLE MD Ordered by: IESHA KHAN, ANSHU KHAN Report #: [id number] Location: MED/SURG Room/Bed: [facility] Procedure: [id number] DX/C-SPINE 2 VIEWS AP LATERAL Exam Date: 08/17/20 Exam Time: 1119 REPORT STATUS: Signed Cervical spine, 2 views INDICATION: NACK PAIN 20200817 Comparison: None available. Discussion: The C7 vertebral body is not well-visualized the lateral view. There are multilevel degenerative changes, mostly of the uncovertebral and posterior facet joints. Disc-osteophyte complexes are identified at C4-5, C5-6 and C6-7. Negative for abnormal prevertebral soft tissue thickening. C1-C2 articulation is symmetric. The odontoid is intact. IMPRESSION: Limited radiographs of the cervical spine. Advanced uncovertebral and facet degenerative changes are noted throughout the cervical spine with disc-osteophyte complexes. Consider follow-up CT or MRI for further evaluation. Signed by: Ajit Healy MD on 08/17/2020 11:46 AM Dictated By: AJIT HEALY MD 45 Transcribed By: JOSE LUIS on 08/17/201145 COPY TO: ANSHU JULIAN RENAL RETROPERITONEAL COMP 2020-08-17 09:39:00 [facility] : 1950 Sex: [place] [address] Patient Name: JONATHAN COTTRELL MR #: [id number] : 1950 Age/Sex: 70/M Req #: [id number] Adm Physician: REEMA COLE MD Ordered by: KATHRIN VELOZ MD Report #: [id number] Location: MED/SURG Room/Bed: [facility] Procedure: [id number] US/US RENAL RETROPERITONEAL COMP Exam Date: 08/17/20 Exam Time: 08 REPORT STATUS: Signed EXAM: Renal Ultrasound INDICATION: RENAL FAILURE COMPARISON: None TECHNIQUE: Transverse and longitudinal images of the kidneys and bladder were obtained. FINDINGS: Right Kidney: Length: 9.6 cm Appearance: Normal echogenicity. Collecting system: No hydronephrosis Stones: None Cyst/Mass: Anechoic cyst at the interpolar aspect is noted measuring up to 1.7 cm. Left Kidney: Length: 11.4 cm Appearance: Normal echogenicity. Collecting system: No hydronephrosis Stones: None Cyst/Mass: Midpole cyst is noted measuring up to 5.7 cm. Bladder: Unremarkable with a prevoid volume of 132 cc. Bilateral ureteral jets are noted. Incidentally noted diffuse increased echogenicity of the liver is noted. IMPRESSION: Negative for hydronephrosis or perinephric fluid collection. Bilateral renal cortical cysts are identified. Incidentally noted hepatic steatosis. Signed by: Ajit Healy MD on 08/17/2020 9:41 AM Dictated By: AJIT HEALY MD 0 Transcribed By: JOSE LUIS on 08/17/20940 COPY TO: KATHRIN VELOZ MD CHEST SINGLE (PORTABLE) 2020-08-15 08:07:00 [facility] : 1950 Sex: [place] [address] Patient Name: JONATHAN COTTRELL MR #: [id number] : 1950 Age/Sex: 70/M Req #: [id number] [facility] Physician: REEMA COLE MD Ordered by: KARELY TAYLOR MD Report #: [id number] Location: [facility] Room/Bed: [address] [place] [address] Procedure: [id number] DX/CHEST SINGLE (PORTABLE) Exam Date: 08/15/20 Exam Time: 723 REPORT STATUS: Signed EXAMINATION: CHEST SINGLE (PORTABLE) INDICATION: Chest pain. COMPARISON: None FINDINGS: TUBES and LINES: None. LUNGS: Normal lung volumes. There is central pulmonary vascular congestion. Lungs are clear. No con solidations. PLEURA: No pleural effusion or pneumothorax. HEART AND MEDIASTINUM: The cardiomediastinal silhouette is unremarkable. BONES AND SOFT TISSUES: No acute osseous lesion. Soft tissues are unremarkable. UPPER ABDOMEN: No free air under the diaphragm. IMPRESSION: Central pulmonary vascular congestion. No pulmonary edema, focal consolidation, pleural effusion or pneumothorax. Signed by: Jeremi Louise MD on 08/15/2020 8:08 AM Dictated By: JEREMI LOUISE MD 7 Transcribed By: JOSE LUIS on 08/15/20807 COPY TO: KARELY TAYLOR MD
--- OUTSIDE RECORDS SUMMARY | 2020-08-27 18:27 | XMS REPORT | Continuity of Care Document ---
Author Author [facility] Organization [facility] Address [address] [place] [address] Phone Unavailable Care Team Providers Care Senior Procurement Manager Name Role Phone REEMA COLE Attnathaly Unavailable REEMA COLE Unavailable Problems This patient has no known problems. Allergies, Adverse Reactions, Alerts This patient has no known allergies or adverse reactions. Medications This patient has no known medications. Procedures This patient has no known procedures. Results Test Description Test Time Test Comments Results Result Comments Source CT BRAIN WO 2020-08-23 11:56:00 [facility] : 1950 Sex: M [facility] [address] [address] Patient Name: JONATHAN COTTRELL MR #: [id number] : 1950 Age/Sex: 70/M Req #: [id number] [facility] Physician: REEMA COLE MD Ordered by: KARELY TAYLOR MD Report #: [id number] Location: MED/SURG3 Room/Bed: [facility] Procedure: [id number] CT/CT BRAIN WO Exam Date: 08/23/20 Exam [...] TAYLOR MD CHEST SINGLE (PORTABLE) 2020-08-23 10:53:00 [facility] : 1950 Sex: M [address] [address] Patient Name: JONATHAN COTTRELL MR #: [id number] : 1950 Age/Sex: 70/M Req #: [id number] Adm Physician: Ordered by: KARELY TAYLOR MD Report #: [id number] Location: ER Room/Bed: Procedure: [id number] DX/CHEST SINGLE (PORTABLE) Exam Date: 08/23/20 Exam [...] since most recent prior examination. Signed by: Jeremi Louise MD on 08/23/2020 10:55 AM Dictated By: JEREMI LOUISE MD 54 Transcribed By: JOSE LUIS on 08/23/201054 COPY TO: KARELY TAYLOR MD C-SPINE 2 VIEWS AP LATERAL 2020-08-17 11:44:00 [facility] : 1950 Sex: [place] [address] [address] Patient Name: JONATHAN COTTRELL MR #: [id number] : 1950 Age/Sex: 70/M Req #: [id number] [facility] Physician: REEMA COLE MD Ordered by: IESHA KHAN, ANSHU KHAN Report #: [id number] Location: MED/SURG Room/Bed: [facility] Procedure: [id number] DX/C-SPINE 2 VIEWS AP LATERAL Exam Date: [...] ANSHU JULIAN RENAL RETROPERITONEAL COMP 2020-08-17 09:39:00 [facility] 1950 Sex: [place] [address] Patient Name: JONATHAN COTTRELL MR #: [id number] : 1950 Age/Sex: 70/M Req #: [id number] Adm Physician: REEMA COLE MD Ordered by: KATHRIN VELOZ MD Report #: [id number] Location: MED/SURG Room/Bed: [facility] Procedure: [id number] US/US RENAL RETROPERITONEAL COMP Exam Date: 08/17/20 [...] MD CHEST SINGLE (PORTABLE) 2020-08-15 08:07:00 [facility] 1950 Sex: [place] [address] Patient Name: JONTAHAN COTTRELL MR #: [id number] : 1950 Age/Sex: 70/M Req #: [id number] [facility] Physician: REEMA COLE MD Ordered by: KARELY TAYLOR MD Report #: [id number] Location: [facility] Room/Bed: [place] [address] Procedure: [id number] DX/CHEST SINGLE (PORTABLE) Exam Date: 08/15/20 Exam [...] pleural effusion or pneumothorax. Signed by: Jeremi oLuise MD on 08/15/2020 8:08 AM Dictated By: JEREMI LOUISE MD 7 Transcribed By: JOSE LUIS on 08/15/20807 COPY TO: KARELY TAYLOR MD
== END 2020-08-25 11:24 | disposition home or self-care (01) ==
LOC: ER 09:27 → ERHOLD 11:02 → MED/SURG3 13:04
PROVIDERS: ADMIT Internal Medicine; ATTEND Internal Medicine
DX: R07.89 Other chest pain (principal); E03.9 Hypothyroidism, unspecified; I25.10 Atherosclerotic heart disease of native coronary artery without angina pectoris; Z95.5 Presence of coronary angioplasty implant and graft; Z90.49 Acquired absence of other specified parts of digestive tract; Z87.891 Personal history of nicotine dependence; Z79.4 Long term (current) use of insulin; E78.5 Hyperlipidemia, unspecified; D64.9 Anemia, unspecified; E11.22 Type 2 diabetes mellitus with diabetic chronic kidney disease; I12.9 Hypertensive chronic kidney disease with stage 1 through stage 4 chronic kidney disease, or unspecified chronic kidney disease; N18.9 Chronic kidney disease, unspecified; M54.2 Cervicalgia; M25.512 Pain in left shoulder; M25.511 Pain in right shoulder
CPT/HCPCS: 36415; 70450; 71045; 80048; 80053; 80061; 82550; 82553; 82948; 83735; 83880; 84484; 85025; 85610; 85730; 87086; 93005; 93306; 96372; 99284; G0378; J1940; J7030; J7799

== ENCOUNTER 2025-06-14 12:13 | Emergency (ER) | payer MEDICARE ==
[~2025-06-14] VITALS: Ht 177.8 cm; Wt 99.8 kg
[2025-06-14 14:11] VITALS: PULSE 58; RESP 18; TEMP 97.9; O2SAT 100
[2025-06-14] MEDS ORDERED: ENTRESTO 24 MG1 EACH PO (14:24)
[2025-06-14] MEDS ORDERED: FOLIC ACID0.4 MG PO (14:24)
[2025-06-14] MEDS ORDERED: SENSIPAR30 MG PO (14:24)
[2025-06-14] MEDS ORDERED: FEROSUL325 MG PO (14:24)
[2025-06-14] MEDS ORDERED: SPIRONOLACTONE25 MG PO (14:24)
[2025-06-14] MEDS ORDERED: XARELTO20 MG PO (14:24)
[2025-06-14] MEDS ORDERED: GLIPIZIDE5 MG PO (14:24)
[2025-06-14] MEDS ORDERED: JARDIANCE25 MG PO (14:24)
[2025-06-14] MEDS ORDERED: TRICOR145 MG PO (14:24)
[2025-06-14] MEDS ORDERED: CALCITRIOL0.5 MCG PO (14:24)
[2025-06-14] MEDS ORDERED: FLUORESCEIN SOD(OPTH) 1 MG STRP ONE (14:28)
[2025-06-14] MEDS ORDERED: TETRACAINE HCL 0.5% OPTH SOLN 4 ML BTL ONE (14:28)
[2025-06-14] MEDS: FLUORESCEIN SOD(OPTH) 1 MG STRP OP ONE (14:35)
[2025-06-14] MEDS: TETRACAINE HCL 0.5% OPTH SOLN 4 ML BTL OP ONE (14:35)
[2025-06-14] MEDS ORDERED: POLYMYXIN B-TMP10 ML OP (15:07)
== END 2025-06-14 15:15 | disposition home or self-care (01) ==
LOC: ER 13:35
DX: S05.01XA Injury of conjunctiva and corneal abrasion without foreign body, right eye, initial encounter (principal); H11.31 Conjunctival hemorrhage, right eye; R42 Dizziness and giddiness; I10 Essential (primary) hypertension; E11.9 Type 2 diabetes mellitus without complications; E78.5 Hyperlipidemia, unspecified; E03.9 Hypothyroidism, unspecified; I25.10 Atherosclerotic heart disease of native coronary artery without angina pectoris; Z95.5 Presence of coronary angioplasty implant and graft
CPT/HCPCS: 99282